=== PATIENT | female | born 1980 | race Caucasian/White ===

== ENCOUNTER 2018-07-06 22:02 | Emergency (ER) | payer OTHER ==
[2018-07-07] MEDS: Lactated Ringer's 1,000 ML IV SCH ×2 (00:25→02:10)
[2018-07-07 00:44] VITALS: BMI 34.7
[2018-07-07] MEDS ORDERED: Lactated Ringer's 1,000 ML IV SCH (03:30)
--- NOTE | 2018-07-07 04:43 | OBDCSUM ---
Datetime: 07/07/2018 04:42 Discharged to, Provider: Home Follow up at, Provider: Dr. Wheatley Discharge Diagnosis, Provider: Vicky Labor - Undelivered Discharge Time: 07/07/2018 04:42 Follow up in weeks, Provider: rita
--- NOTE | 2018-07-07 04:43 | OBHP ---
Datetime: 07/07/2018 00:23 IP Adm Impression: Term, intrauterine IP Admit Plan: Observation/Evaluation; Discharge home Admit Comment, IP Provider: 37 yo at 37+6 wks w/ EDC 07/22/2018 by LMP reports painful ctxns that started around 1830. Pt denies LOF, VB and reports movement. Pt received her c are w/ Dr. Wheatley. 07/01/2018 GBS is negative. PMH: asthma w/ excercise, h/o MCKD, one functioning kidney PSH: [place] teeth Meds: PNVs All: NKDA Road Repairer hx: menarche around 17 yo, reg periods, pt denies h/o STDs and abn paps Ob hx: 05/2014 SAB 04/2015 VD female infant, 6#6 Soc hx: Pt denies tobacco, alcohol and illicit drug use Fam hx: N/c PE: AFVSS Gen'l: NAD Heart: RRR Chest: Lungs CTA b/l Abd: soft, NT, gravid, breech presentation, head in maternal RUQ by u/s at the bedside Ext: trace edema in LES VE: FT/ 60/-2 at 12:13 am FHT: as above [place]: as above A/P: 37 yo at 37+6 wks w/ ctxns Will give IVF FHT reactive VE unchanged at 0437. Pt discharged home to f/u w/ Dr. Wheatley in the office today. Extremities - PN: Normal Abdomen - PN: Normal Back - PN: Normal Lungs - PN: Normal Heart - PN: Normal Neurologic - PN: Normal General - PN: Normal FHR - Baseline A Provider: 120'S Membranes, Provider: Intact Contraction Comments Provider: Q4 EGA AdmitDate IP: 37.6 Vital Signs Provider: Reviewed; Within Normal Limits IP Chief Complaint: Uterine contractions NICHD Variability Prov Fetus A: Minimal - Undetectable to <5bpm NICHD Accel Fetus A IP Provider: [id number] FHR Category Provider Fetus A: Category I NICHD Decel Fetus A IP Provider: None Dilatation, Provider: FT Effacement, Provider: 60 Station, Provider: -3 Genitourinary Exam: Normal
[2018-07-07 09:02] VITALS: BP 123/64; PULSE 93; TEMP 98.7
== END 2018-07-07 04:51 | disposition home or self-care (01) ==
LOC: H.EROB2 22:02
DX: O26.93 Pregnancy related conditions, unspecified, third trimester (principal); R10.2 Pelvic and perineal pain; Z3A.37 37 weeks gestation of pregnancy
CPT/HCPCS: 99283; J7120

== ENCOUNTER 2018-07-09 09:44 | Emergency (ER) | payer OTHER ==
[2018-07-09 10:21] VITALS: BMI 37.2
[2018-07-09 11:14] LABS: BASO % 0.2 % (0.0-2.0); EOS # 0.1 K/uL (0.0-0.7); HEMOGLOBIN 12.1 g/dL (12.0-16.0); LYMPH # 2.1 K/uL (1.0-4.3); LYMPH % 17.5 % (20.0-40.0); MEAN CELL VOLUME 90.3 fl (81.0-99.0); MEAN CORPUSCULAR HEMOGLOBIN 30.7 pg (27.0-31.0); MEAN PLATELET VOLUME 9.8 fl (7.2-11.7); MONO # 0.8 K/uL (0.0-0.8); MONO % 6.4 % (0.0-10.0); NEUT # 8.8 K/uL (1.8-7.0); NEUT % 74.9 % (50.0-75.0); NRBC % 0.2 % (0.0-0.0); RBC 3.95 Mil/uL (3.80-5.20); RED CELL DISTRIBUTION WIDTH 13.3 % (11.5-14.5); WHITE BLOOD COUNT 11.8 K/uL (4.8-10.8)
[2018-07-09] MEDS ORDERED: Lactated Ringer's 1,000 ML IV SCH (15:15)
[2018-07-09 19:52] VITALS: BP 124/69; PULSE 94; O2SAT 100
--- NOTE | 2018-07-10 08:07 | OBHP ---
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 We attempted to turn the baby but terminated procedure due to maternal disc omfort. The patient was offered epidural and declined. The patient opted for Nitrous. We attempted th e procedure again and the patient did not tolerated the procedure so it was terminated. The patent an d baby were monitored the tracing was noted to be reative post procedure patient reported good FM and was discharged home Pelvic Type - PN: Adequate Extremities - PN: Normal Abdomen - PN: Normal Back - PN: Normal Breast - PN: Not Done Lungs - PN: Normal Heart - PN: Not Done Thyroid - PN: Not Done Neurologic - PN: Normal HEENT - PN: Normal General - PN: Normal EGA AdmitDate IP: 38.1 Vital Signs Provider: Reviewed IP Chief Complaint: Other Dilatation, Provider: 0 Effacement, Provider: 0 Station, Provider: -2 Genitourinary Exam: Not Done DTRs - PN: Normal
== END 2018-07-09 15:45 | disposition home or self-care (01) ==
LOC: H.EROB2 09:44 → H.L&D 09:46 → H.EROB2 15:45
DX: O32.1XX0 Maternal care for breech presentation, not applicable or unspecified (principal); Z90.5 Acquired absence of kidney; Z3A.37 37 weeks gestation of pregnancy
CPT/HCPCS: 85025; 96372; 99285; J3105

== ENCOUNTER 2018-07-16 07:48 | Inpatient (IN) | payer OTHER ==
[2018-07-16 08:00] VITALS: BMI 34.9
[2018-07-16] MEDS ORDERED: ceFAZolin 1 GM in Sodium Chloride 0.9% 100 ML IVPB ONE (08:00)
[2018-07-16] MEDS: Lactated Ringer's 1,000 ML IV ONE ×2 (08:00→09:00)
[2018-07-16] MEDS ORDERED: Lactated Ringer's 1,000 ML IV SCH ×2 (08:00→08:15)
[2018-07-16] MEDS ORDERED: Lactated Ringer's 1,000 ML IV ONE (08:00)
[2018-07-16] MEDS ORDERED: OXYTOCIN/0.9 % NS 20 UNIT/1,000 ML BAG IV ONE (08:03)
[2018-07-16] MEDS ORDERED: Oxytocin 30 UNIT 30 UNITS/500 ML BAG IV ONE ×3 (08:03→08:13)
[2018-07-16] MEDS ORDERED: OXYTOCIN/0.9 % NS 20 UNIT/1,000 ML BAG IV SCH (08:15)
[2018-07-16 08:36] LABS: BASO % 0.1 % (0.0-2.0); EOS # 0.2 K/uL (0.0-0.7); EOS % 1.3 % (0.0-4.0); HEMOGLOBIN 12.3 g/dL (12.0-16.0); LYMPH # 2.3 K/uL (1.0-4.3); LYMPH % 19.7 % (20.0-40.0); MEAN CELL VOLUME 91.2 fl (81.0-99.0); MEAN CORPUSCULAR HEMOGLOBIN 30.1 pg (27.0-31.0); MEAN PLATELET VOLUME 10.4 fl (7.2-11.7); MONO % 8.1 % (0.0-10.0); NEUT # 8.3 K/uL (1.8-7.0); NEUT % 70.8 % (50.0-75.0); NRBC % 0.2 % (0.0-0.0); PLATELET COUNT 242 K/uL (130-400); RED CELL DISTRIBUTION WIDTH 13.4 % (11.5-14.5); WHITE BLOOD COUNT 11.7 K/uL (4.8-10.8)
[2018-07-16 09:42] LABS: BANDS 6 % (0-2); METAMYELOCYTE 1 % (0-0); MONOCYTE 7 % (0-10); MYELOCYTE 1 % (0-0); TOTAL CELLS COUNTED 100
[2018-07-16 09:43] LABS: PLATELET ESTIMATE NORMAL (NORMAL)
[2018-07-16 09:44] LABS: LYMPHOCYTE 24 % (20-50); NEUTROPHIL 61 % (42-75)
[2018-07-16] MEDS ORDERED: Morphine 1 mg/ml preservative-free Inj(Duramorph) ONE (10:13)
[2018-07-16] MEDS ORDERED: Oxycodone/Acetaminophen 5/325 mg Tab PO PRN ×3 (11:47→19:36)
[2018-07-16] MEDS: Lactated Ringer's 1,000 ML IV SCH (19:52)
[2018-07-17] MEDS: Oxycodone/Acetaminophen 5/325 mg Tab PO PRN ×4 (04:19→20:38)
[2018-07-17] MEDS: Lactated Ringer's 1,000 ML IV SCH ×2 (04:23→14:13)
--- NOTE | 2018-07-17 04:40 | OBDS ---
DELIVERY PERSONNEL Delivery Doctor: Karri Wheatley MD Scrub Nurse: Concepcion Albrecht Material Damage Appraiser: Wendy Wheeler RN Anesthesiologist: Dr Pina MATERNAL INFORMATION Delivery Anesthesia: Spinal Medications in Delivery: ancef 1G Placenta Cultured: No Maternal Complications: None RN Comments: patient delivered girl via P C/S due to transverse presentation. was take n to warmer and examined by Dr Loya. taken to mother for skin to skin. patient tolerat ed well. and patient transferred to labor and delivery for recover. Provider Comments: See operative report LABOR SUMMARY EDC: 07/22/2018 00:00 No. Babies in Womb: 1 LABOR INFORMATION Group B Beta Strep: Done, Result Unknown STAGES OF LABOR Stage 3 hrs: 0 Stage 3 min: 1 CSECTION DELIVERY Primary Indication: tranverse Presentation CSection Urgency: Non Elective CSection Incidence: Primary Labor: No Labor Elective: Nonelective CSection Incision: Lower Uterine Transverse BABY A INFORMATION Infant Delivery Date/Time: 07/16/2018 10:42 Method of Delivery: Born in Route : No : N/A Forceps: N/A Vacuum Extraction: N/A Shoulder Dystocia : No SHOULDER DYSTOCIA BABY A Infant Delivery Date/Time: 07/16/2018 10:42 PRESENTATION/POSITION BABY A Presentation: transverse PLACENTA INFORMATION BABY A Placenta Delivery Time : 07/16/2018 10:43 Placenta Method of Delivery: Manual Removal Placenta Status: Delivered SCORES BABY A Heart Rate 1 min: >100 bpm Resp Effort 1 min: Good Cry Reflex Irritability 1 min: Cough or Sneeze or Pulls Away Muscle Tone 1 min: Some Flexion of Extremities Color 1 min: Body [place], Extremities Blue Resuscitation Effort 1 min: Tactile Stimulation SCORE 1 MIN: 8 Heart Rate 5 min: >100 bpm Resp Effort 5 min: Good Cry Reflex Irritability 5 min: Cough or Sneeze or Pulls Away Muscle Tone 5 min: Active Motion Color 5 min: Body [place], Extremities Blue Resuscitation Effort 5 min: N/A SCORE 5 MIN: 9 INFANT INFORMATION BABY A Gestational Age at Delivery: 39.0 Gestational Status: Term Infant Outcome : Liveborn Condition : Stable Sex: Female WEIGHT/LENGTH BABY A Birthweight (gms): 3080 Weight (lb): 6 Infant Weight (oz): 13 Infant Length Inches: 18.50 Infant Length cms: 47.0 CORD INFORMATION BABY A No. Cord Vessels: 3 Nuchal Cord : N/A Cord Blood Taken: Yes Suction: Mouth
[2018-07-17 06:15] LABS: HEMOGLOBIN 11.4 g/dL (12.0-16.0); MEAN CORPUSCULAR HEMOGLOBIN 31.2 pg (27.0-31.0); MEAN CORPUSCULAR HGB CONC 33.9 g/dL (33.0-37.0); RBC 3.66 Mil/uL (3.80-5.20); RED CELL DISTRIBUTION WIDTH 13.4 % (11.5-14.5); WHITE BLOOD COUNT 15.1 K/uL (4.8-10.8)
[2018-07-17] MEDS: Multivitamin With Minerals Tab PO SCH (08:07)
--- NOTE | 2018-07-17 08:16 | OP ---
PROCEDURE DATE: 07/16/18 PREOPERATIVE DIAGNOSIS: Breech presentation at 39 weeks, failed attempted external cephalic version. POSTOPERATIVE DIAGNOSIS: Breech presentation at 39 weeks, failed attempted external cephalic version. OPERATION PERFORMED: Primary low flat transverse section via Pfannenstiel skin incision. SURGEON: Arlette Wheatley MD CAD APPLICATION SUPPORT SPECIALIST: Dr. Faviola Simpson. She was helpful in creating exposure, obtaining hemostasis, delivery of the , and closure of the patient. The procedure would not have been possible without her assistance. ANESTHESIA: General. ANESTHESIA ADMINISTERED BY: . ESTIMATED BLOOD LOSS: 800 mL. URINE OUTPUT: Bolivar catheter put out approximately 100 mL of clear urine. IV FLUID INTAKE: The patient received 1400 mL of D5 LR intraoperatively. OPERATIVE FINDINGS: Baby girl, breech presentation, Apgars 8 and 9, weighing 3080 grams. Normal uterus, tubes, and ovaries were identified. DESCRIPTION OF PROCEDURE: After informed consent was obtained, the patient was taken to the operating room where she was given spinal anesthesia. She was then prepped and draped in a normal sterile fashion with a leftward tilt. A Pfannenstiel skin incision was then made with a scalpel and carried down to the underlying layer of fascia. The fascia was nicked in the midline. The fascial incision was then extended laterally with a curved Charles scissors. The superior aspect of the fascial incision was then grasped with Perry clamps, elevated up, and the rectus muscles were dissected off using both sharp and blunt dissection. Attention was then turned to the inferior aspect of the fascial incision, which in a similar fashion was grasped with Perry clamps, elevated up, and the rectus muscles were dissected off using both sharp and blunt dissection. The rectus muscles were then in the midline. The peritoneum was identified and entered sharply with the Metzenbaum scissors. The peritoneal incision was then extended superiorly and inferiorly with good visualization of the bladder. The bladder blade was inserted. The vesicouterine peritoneum was identified and entered sharply with the Metzenbaum scissors. The incision was then extended laterally. A bladder flap was created digitally. The bladder blade was then readjusted. A low transverse incision was then made with a scalpel. The incision was then extended laterally. The breech was then delivered atraumatically. The nose and mouth were suctioned with a suction trap. The cord was clamped and cut. The infant was handed off to the awaiting pediatricians. The placenta was then removed manually. The uterus was exteriorized and cleared of all clots and debris. The uterine incision was then repaired with 0 Vicryl in a running locked fashion. The second layer of the same suture was used to obtain excellent hemostasis. The uterus was then returned to the abdomen. The abdomen was then copiously irrigated. The irrigant was removed with the suction device. Hemostasis was noted. The peritoneum was then closed with 2-0 Vicryl in a running fashion. The muscle was reapproximated with 0 Vicryl in an interrupted fashion and fascia was closed with 0 Vicryl in a running fashion and the skin was closed with 3-0 on a Frankie needle. All sponge, lap, needle, and instrument counts were correct x2, and the patient was taken to the recovery room in awake and stable condition. Arlette Wheatley MD
[2018-07-17] MEDS ORDERED: Multivitamin With Minerals Tab PO SCH (09:00)
[2018-07-18] MEDS: Multivitamin With Minerals Tab PO SCH (10:10)
--- NOTE | 2018-07-18 10:36 | OBPPN ---
Datetime: 07/18/2018 10:30 PP Pain Prov: Within normal limits PP Nausea Prov: Denies PP Flatus Prov: Yes PP BM Prov: No PP Breasts Prov: Normal PP Heart Prov: Normal PP Lungs Prov: Normal PP Abdomen/Uterus Prov: Normal PP Lochia Prov: Normal PP Vulva/Perineum Prov: Normal PP CVA Tenderness Prov: Normal PP Extremities Prov: Normal PP Comments Phys Exam Prov: Fundus firm under umbilicus Incision clean/dry/intact PP Impression Prov: Normal progression PP Plan Prov: Continue present management PP Progress Note Prov: patient denies CP, no SOB, no N/V, tolerating PO diet, ambulating/voiding wel l, mild lochia, abdominal pain tolerable with meds, +flatus A/P POD #2 1. Continue Post op orders 2. Percocet/Motrin prn pain 3. Encourage patient to ambulate and IP PP Procedures: None Vital Signs Provider PP: Reviewed; Within Normal Limits
--- NOTE | 2018-07-18 16:31 | OBDCSUM ---
Datetime: 07/18/2018 16:30 Discharged to, Provider: Home Follow up at, Provider: OB Disch Instr Activity: Normal activity Disch Instr Diet: Regular Discharge Instructions, Provider: Routine instructions given Discharge Diagnosis, Provider: Term Delivered Discharge Time: 07/18/2018 16:30 Follow up in weeks, Provider: 1 wk, 6 wks Disch Referrals: None Contraception discussed, Prov: Yes
[2018-07-18 23:21] VITALS: BP 120/71; PULSE 88; RESP 20; TEMP 97.9; O2SAT 100
== END 2018-07-18 18:40 | disposition home or self-care (01) | DRG 788 ==
LOC: H.EROB2 07:48 → H.L&D 08:02 → H.OB/GYN 13:47
PROVIDERS: ADMIT Obstetrics & Gynecology Gynecology; ATTEND Obstetrics & Gynecology Gynecology
PROC: 4A1HXCZ Monitoring of Products of Conception, Cardiac Rate, External Approach (ICD-10-PCS; 2018-07-16)
PROC: 10D00Z1 Extraction of Products of Conception, Low, Open Approach (ICD-10-PCS; principal; 2018-07-17)
DX: O32.2XX0 Maternal care for transverse and oblique lie, not applicable or unspecified (principal); Z3A.39 39 weeks gestation of pregnancy; Z37.0 Single live birth